=== PATIENT | male | born 1980 | race Caucasian/White ===

== ENCOUNTER 2018-08-28 17:31 | Inpatient (IN) ==
[2018-08-28 18:11] LABS: ABG PCO2 54 mmHg (38-42); ABG PO2 73 mmHg (61-120)
[2018-08-28] MEDS ORDERED: Sod Chloride 0.9% Inj 1,000 ML IV.SIG ONE ×2 (18:16)
--- NOTE | 2018-08-28 18:17 | ED ---
HPI General Chief Complaint: Respiratory Symptoms Stated Complaint: poss OD/evac Time Seen by Provider: 08/28/18 17:44 Source: patient, RN notes reviewed and old records reviewed Mode of arrival: EMS Limitations: other (illness) History of Present Illness 38-year-old male presents to the emergency department via EMS for evaluation after possible syncope versus cardiac arrest. Patient has been short of breath for approximately 2 weeks he states. He states he has been coughing and wheezing. He reports a fever a week ago, no current fever. His states that she was talking to him and he became unresponsive. She states he had no pulse and did CPR. According to EMS, they gave him Narcan and he woke up to a GCS of 15. The patient adamantly denies using IV drugs. His also denies him using IV drugs. The patient reports no chronic medical problems and takes no prescribed medications. He denies any chest pain. He does report shortness of breath. He denies any abdominal pain. Patient does use tobacco. He adamantly denies drug use. Oxygen saturation on room air was 65% upon arriving in the room. Severity: Severe MD Complaint: Reports shortness of breath Onset (ago): week(s) (2) Severity: severe Consistency/Duration: progressively worsening Relieving factors: nothing Exacerbating factors: nothing Known history of: Denies COPD, asthma, congestive heart failure, diabetes and recurrent pneumonia Associated symptoms: Reports fever, cough, wheezing, sputum production, hemoptysis, nausea/vomiting, syncope and chest congestion; Denies chest pain and abdominal pain Treatment prior to arrival: Reports other (Narcan) Related Data Home oxygen amount: none Home Medications Medication Instructions Recorded Confirmed No Known Home Medications 08/28/18 08/28/18 Allergies Allergy/AdvReac Type Severity Reaction Status Date / Time No Known Allergies Allergy Verified 08/28/18 18:22 Review of Systems ROS: all other systems reviewed are negative [facility] Medical History Medical History No active medical problems (Acute) Surgical History Surgical History No history of previous surgery (Acute) Social History Social History Substance History: No History of Abuse Second Hand Smoke Exposure: Yes Smoking Status: Former smoker Tobacco Type: Cigarettes How Often Do You Have a Drink Containing Alcohol: Monthly or less Recent Travel in [facility] within the Last 8 Weeks: No Recent Out of Country Travel within the Last 8 Weeks: No Immunization History Tetanus Immunization: >5 Years Exam Narrative Exam Narrative: GENERAL: Well-nourished, well-developed male patient, afebrile SKIN: Focused skin assessment warm/dry. HEAD: Normocephalic. Atraumatic EYES: No scleral icterus. No injection or drainage. NECK: Supple, trachea midline. No JVD or lymphadenopathy. CARDIOVASCULAR: Regular rate and rhythm without murmurs, gallops, or rubs. RESPIRATORY: Breath sounds equal bilaterally. No accessory muscle use. Lung sounds diminished throughout, slight wheezes upper lobes GASTROINTESTINAL: Abdomen soft, non-tender, nondistended. MUSCULOSKELETAL: No cyanosis, or edema. BACK: Nontender without obvious deformity. No CVA tenderness. Course Initial Documented Vital Signs Temperature 98.3 F 08/28/18 17:34 Pulse Rate 97 H 08/28/18 17:34 Respiratory Rate 20 08/28/18 17:34 Blood Pressure 157/81 H 08/28/18 17:34 Pulse Oximetry 78 L 08/28/18 17:34 Last Documented Vital Signs Temperature 98.5 F 08/29/18 08:00 Pulse Rate 82 08/29/18 08:00 Respiratory Rate 18 08/29/18 08:00 Blood Pressure 126/82 08/29/18 08:00 Pulse Oximetry 95 08/29/18 10:29 Medical Decision Making [facility] Narrative Medical decision making narrative: 38 year old male presents to the emergency department for possible OD. However, he adamantly denies using IV drugs. His oxygen saturation is 65% on room air. He is up to 91% on a nonrebreather. IV access is obtained. CBC, CMP, Lactic acid, magnesium, BNP, CK, Troponin, PTT, PT/INR, blood cultures x 2 are ordered and pending. Patient is given duoneb x3 , solumedrol 125 mg IV, NS 2 L IV bolus. Chest x-ray, CT pulmonary angiogram are ordered and pending. CBC shows no acute abnormality. CMP shows hyperglycemia of 161. Lactic acid is 2.4. Magnesium is 2.5. BNP is pending. CK is 131. Troponin is less than 0.02. PTT is 22.6. PT/INR is 10.1/1.0. Chest x-ray is negative. CT pulmonary angiogram shows Moderate interstitial changes with minimal consolidation left lobe with some air bronchograms. No evidence for central pulmonary emboli. Patient is weaned to a partial nonrebreather, oxygen saturation 98-100%. He states he is feeling much better. He is reluctant to be admitted, but agrees to admission. Patient is given Azithromycin 500 mg IV, Rocephin 1 gm IV for pneumonia, sepsis, hypoxia. Medical Screen Exam Complete: Yes Emergency Medical Condition: Yes Differential Diagnosis Differential Diagnosis: pneumonia vs. sepsis vs. PE vs. ACS Medical Records Medical records reviewed: Yes I reviewed the patient's medical records. Lab Data Result diagrams: 08/29/18 07:03 08/29/18 07:03 Lab Results 08/28/18 08/28/18 08/28/18 Range/Units 18:00 18:05 18:05 WBC 8.0 (4.0-11.0) th/mm3 RBC 4.23 L (4.50-5.90) mil/mm3 Hgb 13.6 (13.0-17.0) gm/dL Hct 39.2 (39.0-51.0) % MCV 92.8 (80.0-100.0) fL MCH 32.2 (27.0-34.0) pg MCHC 34.7 (32.0-36.0) % RDW 12.6 (11.6-17.2) % Plt Count 293 (150-450) th/mm3 MPV 7.8 (7.0-11.0) fL Neut % (Auto) 64.3 (16.0-70.0) % Lymph % (Auto) 28.0 (9.0-44.0) % [place] % (Auto) 5.2 (0.0-8.0) % Eos % (Auto) 1.8 (0.0-4.0) % Baso % (Auto) 0.7 (0.0-2.0) % Neut # (Auto) 5.2 (1.8-7.7) th/mm3 Lymph # (Auto) 2.2 (1.0-4.8) th/mm3 [place] # (Auto) 0.4 (0.0-0.9) th/mm3 Eos # (Auto) 0.1 (0.0-0.4) th/mm3 Baso # (Auto) 0.1 (0.0-0.2) th/mm3 WBC Differential . Differential Comment Auto diff final PT (9.8-11.6) sec INR Ratio APTT (23.4-31.7) sec Puncture Site Right radial Patient Temperature 98.6 O2 Saturation 92 (90-100) % ABG pH 7.34 L (7.380-7.420) ABG pCO2 54 H* (38-42) mmHg ABG pO2 73 (61-120) mmHg ABG HCO3 28 H (22-26) mmol/L ABG O2 Content 17.0 (12.0-20.0) Vol % ABG Base Excess 3.0 H (-2-2) mmol/L ABG Methemoglobin 0.9 (0-2) % Schuyler Test Present Hemoglobin 13.1 (12.0-16.0) G/DL Carboxyhemoglobin 0.7 (0-4) % O2 Delivery Device Nrb Liter Flow 15.00 L/M Critical Value Yes Sodium 142 (136-145) meq/L Potassium 3.6 (3.5-5.1) meq/L Chloride 106 (98-107) meq/L Carbon Dioxide 25.1 (21.0-32.0) meq/L Anion Gap 11 (5-15) meq/L BUN 16 (7-18) mg/dL Creatinine 1.26 (0.60-1.30) mg/dL Estimated GFR 64 L (>89) mL/min Random Glucose 161 H (74-106) mg/dL Lactic Acid (0.4-2.0) mmol/L Calcium 8.3 L (8.5-10.1) mg/dL Magnesium (1.5-2.5) mg/dL Total Bilirubin 0.5 (0.2-1.0) mg/dL AST 124 H (15-37) U/L ALT 162 H (12-78) U/L Alkaline Phosphatase 46 (45-117) U/L Total Creatine Kinase 131 (39-308) U/L CK-MB (CK-2) Less than 1.0 (0.5-3.6) ng/mL Troponin I Less than 0.02 L (0.02-0.05) ng/mL B-Natriuretic Peptide (0-100) pg/mL Total Protein 7.7 (6.4-8.2) g/dL Albumin 3.8 (3.4-5.0) g/dL Urine Opiates Screen (Neg) Ur Barbiturates Screen (Neg) Ur Amphetamines Screen (Neg) U Benzodiazepines Scrn (Neg) Urine Cocaine Screen (Neg) U Cannabinoids Screen (Neg) 08/28/18 08/28/18 08/28/18 Range/Units 18:05 18:05 18:05 WBC (4.0-11.0) th/mm3 RBC (4.50-5.90) mil/mm3 Hgb (13.0-17.0) gm/dL Hct (39.0-51.0) % MCV (80.0-100.0) fL MCH (27.0-34.0) pg MCHC (32.0-36.0) % RDW (11.6-17.2) % Plt Count (150-450) th/mm3 MPV (7.0-11.0) fL Neut % (Auto) (16.0-70.0) % Lymph % (Auto) (9.0-44.0) % [place] % (Auto) (0.0-8.0) % Eos % (Auto) (0.0-4.0) % Baso % (Auto) (0.0-2.0) % Neut # (Auto) (1.8-7.7) th/mm3 Lymph # (Auto) (1.0-4.8) th/mm3 [place] # (Auto) (0.0-0.9) th/mm3 Eos # (Auto) (0.0-0.4) th/mm3 Baso # (Auto) (0.0-0.2) th/mm3 WBC Differential Differential Comment PT 10.1 (9.8-11.6) sec INR 1.0 Ratio APTT 22.6 L (23.4-31.7) sec Puncture Site Patient Temperature O2 Saturation (90-100) % ABG pH (7.380-7.420) ABG pCO2 (38-42) mmHg ABG pO2 (61-120) mmHg ABG HCO3 (22-26) mmol/L ABG O2 Content (12.0-20.0) Vol % ABG Base Excess (-2-2) mmol/L ABG Methemoglobin (0-2) % Schuyler Test Hemoglobin (12.0-16.0) G/DL Carboxyhemoglobin (0-4) % O2 Delivery Device Liter Flow L/M Critical Value Sodium (136-145) meq/L Potassium (3.5-5.1) meq/L Chloride (98-107) meq/L Carbon Dioxide (21.0-32.0) meq/L Anion Gap (5-15) meq/L BUN (7-18) mg/dL Creatinine (0.60-1.30) mg/dL Estimated GFR (>89) mL/min Random Glucose (74-106) mg/dL Lactic Acid (0.4-2.0) mmol/L Calcium (8.5-10.1) mg/dL Magnesium 2.5 (1.5-2.5) mg/dL Total Bilirubin (0.2-1.0) mg/dL AST (15-37) U/L ALT (12-78) U/L Alkaline Phosphatase (45-117) U/L Total Creatine Kinase (39-308) U/L CK-MB (CK-2) (0.5-3.6) ng/mL Troponin I (0.02-0.05) ng/mL B-Natriuretic Peptide 20 (0-100) pg/mL Total Protein (6.4-8.2) g/dL Albumin (3.4-5.0) g/dL Urine Opiates Screen (Neg) Ur Barbiturates Screen (Neg) Ur Amphetamines Screen (Neg) U Benzodiazepines Scrn (Neg) Urine Cocaine Screen (Neg) U Cannabinoids Screen (Neg) 08/28/18 08/28/18 08/28/18 Range/Units 18:05 19:32 20:28 WBC (4.0-11.0) th/mm3 RBC (4.50-5.90) mil/mm3 Hgb (13.0-17.0) gm/dL Hct (39.0-51.0) % MCV (80.0-100.0) fL MCH (27.0-34.0) pg MCHC (32.0-36.0) % RDW (11.6-17.2) % Plt Count (150-450) th/mm3 MPV (7.0-11.0) fL Neut % (Auto) (16.0-70.0) % Lymph % (Auto) (9.0-44.0) % [place] % (Auto) (0.0-8.0) % Eos % (Auto) (0.0-4.0) % Baso % (Auto) (0.0-2.0) % Neut # (Auto) (1.8-7.7) th/mm3 Lymph # (Auto) (1.0-4.8) th/mm3 [place] # (Auto) (0.0-0.9) th/mm3 Eos # (Auto) (0.0-0.4) th/mm3 Baso # (Auto) (0.0-0.2) th/mm3 WBC Differential Differential Comment PT (9.8-11.6) sec INR Ratio APTT (23.4-31.7) sec Puncture Site Patient Temperature O2 Saturation (90-100) % ABG pH (7.380-7.420) ABG pCO2 (38-42) mmHg ABG pO2 (61-120) mmHg ABG HCO3 (22-26) mmol/L ABG O2 Content (12.0-20.0) Vol % ABG Base Excess (-2-2) mmol/L ABG Methemoglobin (0-2) % Schuyler Test Hemoglobin (12.0-16.0) G/DL Carboxyhemoglobin (0-4) % O2 Delivery Device Liter Flow L/M Critical Value Sodium (136-145) meq/L Potassium (3.5-5.1) meq/L Chloride (98-107) meq/L Carbon Dioxide (21.0-32.0) meq/L Anion Gap (5-15) meq/L BUN (7-18) mg/dL Creatinine (0.60-1.30) mg/dL Estimated GFR (>89) mL/min Random Glucose (74-106) mg/dL Lactic Acid 2.4 H 2.5 H (0.4-2.0) mmol/L Calcium (8.5-10.1) mg/dL Magnesium (1.5-2.5) mg/dL Total Bilirubin (0.2-1.0) mg/dL AST (15-37) U/L ALT (12-78) U/L Alkaline Phosphatase (45-117) U/L Total Creatine Kinase (39-308) U/L CK-MB (CK-2) (0.5-3.6) ng/mL Troponin I (0.02-0.05) ng/mL B-Natriuretic Peptide (0-100) pg/mL Total Protein (6.4-8.2) g/dL Albumin (3.4-5.0) g/dL Urine Opiates Screen Neg (Neg) Ur Barbiturates Screen Neg (Neg) Ur Amphetamines Screen Neg (Neg) U Benzodiazepines Scrn Neg (Neg) Urine Cocaine Screen Neg (Neg) U Cannabinoids Screen Neg (Neg) 08/29/18 08/29/18 08/29/18 Range/Units 01:54 01:54 07:03 WBC 11.8 H (4.0-11.0) th/mm3 RBC 3.88 L (4.50-5.90) mil/mm3 Hgb 12.8 L (13.0-17.0) gm/dL Hct 36.0 L (39.0-51.0) % MCV 92.6 (80.0-100.0) fL MCH 32.8 (27.0-34.0) pg MCHC 35.5 (32.0-36.0) % RDW 12.6 (11.6-17.2) % Plt Count 270 (150-450) th/mm3 MPV 7.7 (7.0-11.0) fL Neut % (Auto) 92.4 H (16.0-70.0) % Lymph % (Auto) 4.3 L (9.0-44.0) % [place] % (Auto) 3.2 (0.0-8.0) % Eos % (Auto) 0.0 (0.0-4.0) % Baso % (Auto) 0.1 (0.0-2.0) % Neut # (Auto) 10.9 H (1.8-7.7) th/mm3 Lymph # (Auto) 0.5 L (1.0-4.8) th/mm3 [place] # (Auto) 0.4 (0.0-0.9) th/mm3 Eos # (Auto) 0.0 (0.0-0.4) th/mm3 Baso # (Auto) 0.0 (0.0-0.2) th/mm3 WBC Differential . Differential Comment Auto diff final PT (9.8-11.6) sec INR Ratio APTT (23.4-31.7) sec Puncture Site Patient Temperature O2 Saturation (90-100) % ABG pH (7.380-7.420) ABG pCO2 (38-42) mmHg ABG pO2 (61-120) mmHg ABG HCO3 (22-26) mmol/L ABG O2 Content (12.0-20.0) Vol % ABG Base Excess (-2-2) mmol/L ABG Methemoglobin (0-2) % Schuyler Test Hemoglobin (12.0-16.0) G/DL Carboxyhemoglobin (0-4) % O2 Delivery Device Liter Flow L/M Critical Value Sodium (136-145) meq/L Potassium (3.5-5.1) meq/L Chloride (98-107) meq/L Carbon Dioxide (21.0-32.0) meq/L Anion Gap (5-15) meq/L BUN (7-18) mg/dL Creatinine (0.60-1.30) mg/dL Estimated GFR (>89) mL/min Random Glucose (74-106) mg/dL Lactic Acid 2.5 H (0.4-2.0) mmol/L Calcium (8.5-10.1) mg/dL Magnesium (1.5-2.5) mg/dL Total Bilirubin (0.2-1.0) mg/dL AST (15-37) U/L ALT (12-78) U/L Alkaline Phosphatase (45-117) U/L Total Creatine Kinase (39-308) U/L CK-MB (CK-2) (0.5-3.6) ng/mL Troponin I 0.04 (0.02-0.05) ng/mL B-Natriuretic Peptide (0-100) pg/mL Total Protein (6.4-8.2) g/dL Albumin (3.4-5.0) g/dL Urine Opiates Screen (Neg) Ur Barbiturates Screen (Neg) Ur Amphetamines Screen (Neg) U Benzodiazepines Scrn (Neg) Urine Cocaine Screen (Neg) U Cannabinoids Screen (Neg) 08/29/18 Range/Units 07:03 WBC (4.0-11.0) th/mm3 RBC (4.50-5.90) mil/mm3 Hgb (13.0-17.0) gm/dL Hct (39.0-51.0) % MCV (80.0-100.0) fL MCH (27.0-34.0) pg MCHC (32.0-36.0) % RDW (11.6-17.2) % Plt Count (150-450) th/mm3 MPV (7.0-11.0) fL Neut % (Auto) (16.0-70.0) % Lymph % (Auto) (9.0-44.0) % [place] % (Auto) (0.0-8.0) % Eos % (Auto) (0.0-4.0) % Baso % (Auto) (0.0-2.0) % Neut # (Auto) (1.8-7.7) th/mm3 Lymph # (Auto) (1.0-4.8) th/mm3 [place] # (Auto) (0.0-0.9) th/mm3 Eos # (Auto) (0.0-0.4) th/mm3 Baso # (Auto) (0.0-0.2) th/mm3 WBC Differential Differential Comment PT (9.8-11.6) sec INR Ratio APTT (23.4-31.7) sec Puncture Site Patient Temperature O2 Saturation (90-100) % ABG pH (7.380-7.420) ABG pCO2 (38-42) mmHg ABG pO2 (61-120) mmHg ABG HCO3 (22-26) mmol/L ABG O2 Content (12.0-20.0) Vol % ABG Base Excess (-2-2) mmol/L ABG Methemoglobin (0-2) % Schuyler Test Hemoglobin (12.0-16.0) G/DL Carboxyhemoglobin (0-4) % O2 Delivery Device Liter Flow L/M Critical Value Sodium 142 (136-145) meq/L Potassium 4.0 (3.5-5.1) meq/L Chloride 107 (98-107) meq/L Carbon Dioxide 26.8 (21.0-32.0) meq/L Anion Gap 8 (5-15) meq/L BUN 14 (7-18) mg/dL Creatinine 0.98 (0.60-1.30) mg/dL Estimated GFR 86 L (>89) mL/min Random Glucose 140 H (74-106) mg/dL Lactic Acid (0.4-2.0) mmol/L Calcium 8.2 L (8.5-10.1) mg/dL Magnesium (1.5-2.5) mg/dL Total Bilirubin 0.4 (0.2-1.0) mg/dL AST 37 (15-37) U/L ALT 119 H (12-78) U/L Alkaline Phosphatase 39 L (45-117) U/L Total Creatine Kinase (39-308) U/L CK-MB (CK-2) (0.5-3.6) ng/mL Troponin I Less than 0.02 L (0.02-0.05) ng/mL B-Natriuretic Peptide (0-100) pg/mL Total Protein 6.9 D (6.4-8.2) g/dL Albumin 3.5 (3.4-5.0) g/dL Urine Opiates Screen (Neg) Ur Barbiturates Screen (Neg) Ur Amphetamines Screen (Neg) U Benzodiazepines Scrn (Neg) Urine Cocaine Screen (Neg) U Cannabinoids Screen (Neg) Imaging Data Radiologist's impression: Chest X-Ray 08/28/18 17:55 CONCLUSION: Negative for acute process Chest CTA 08/28/18 17:56 CONCLUSION: 1. Moderate interstitial changes with minimal consolidation left lobe with some air bronchograms 2. No evidence for central pulmonary emboli ECG Data EKG Prior to Arrival: No Attestation: I personally reviewed and interpreted this ECG as follows: (EKG shows a sinus rhythm with a rate of 70. He does have right bundle branch block compatible with some chronic lung disease.) Discharge Plan Discharge Disposition Patient Disposition: ED Admit(ED Internal Use Only) Discharge Order Discharge Orders: ED Use Only Admit Order (Routine); Ordered 08/28/18 Ordered By: Ammy Carlisle Discharge Details Diagnosis: Pneumonia, Sepsis Physicians Team ED Provider: Flor Moura ED Midlevel Provider: Ammy Carlisle Primary Care Provider: Primary Care Masha Mccoy Attending Provider: Zandra Hough Status ED Status: Left Department Discharge Information Discharge Date/Time: 08/28/18:55
[2018-08-28] MEDS ORDERED: MethylPREDNISolone Sod Succinate Inj 125 MG/2 ML Vial IV.PUSH ONE (18:23)
[2018-08-28 18:36] LABS: Baso # (Auto) 0.1 th/mm3 (0.0-0.2); Baso % (Auto) 0.7 % (0.0-2.0); Eos # (Auto) 0.1 th/mm3 (0.0-0.4); Eos % (Auto) 1.8 % (0.0-4.0); Hematocrit 39.2 % (39.0-51.0); Hemoglobin 13.6 gm/dL (13.0-17.0); Lymph # (Auto) 2.2 th/mm3 (1.0-4.8); Mean Corpuscular HGB Conc 34.7 % (32.0-36.0); Mean Corpuscular Hemoglobin 32.2 pg (27.0-34.0); Mean Corpuscular Volume 92.8 fL (80.0-100.0); Mean Platelet Volume 7.8 fL (7.0-11.0); Mono # (Auto) 0.4 th/mm3 (0.0-0.9); Mono % (Auto) 5.2 % (0.0-8.0); Neut # (Auto) 5.2 th/mm3 (1.8-7.7); Neut % (Auto) 64.3 % (16.0-70.0); Platelet Count 293 th/mm3 (150-450); Red Blood Count 4.23 mil/mm3 (4.50-5.90); Red Cell Distribution Width 12.6 % (11.6-17.2)
--- NOTE | 2018-08-28 18:45 | XR ---
EXAM DATE: 08/28/2018 6:26 PM EST AGE/SEX: 38 years / Male INDICATIONS: Short of breath. CLINICAL DATA: This is the patient's initial encounter. Patient reports that signs and symptoms have been present for 4 - 6 days and indicates a pain score of 0/10. MEDICAL/SURGICAL HISTORY: None. None. COMPARISON: No prior exams available for comparison. FINDINGS: A single AP view of the chest demonstrates the lungs to be symmetrically aerated without evidence of mass, infiltrate or effusion. The cardiomediastinal contours are unremarkable. Osseous structures a re intact. CONCLUSION: Negative for acute process Electronically signed by: Jeremias Enciso MD Board Certified Radiologist 08/28/2018 6:44 PM EST
[2018-08-28 18:49] LABS: Activated Partial Thrombo Time 22.6 sec (23.4-31.7); Prothrombin Time 10.1 sec (9.8-11.6)
[2018-08-28 19:10] LABS: Anion Gap 11 meq/L (5-15)
[2018-08-28 19:25] LABS: Alanine Aminotransferase 162 U/L (12-78); Albumin 3.8 g/dL (3.4-5.0); Alkaline Phosphatase 46 U/L (45-117); Aspartate Aminotransferase 124 U/L (15-37); Blood Urea Nitrogen 16 mg/dL (7-18); Calcium 8.3 mg/dL (8.5-10.1); Carbon Dioxide 25.1 meq/L (21.0-32.0); Chloride 106 meq/L (98-107); Creatine Kinase 131 U/L (39-308); Glomerular Filtration Rate 64 mL/min (>89); Glucose,Random 161 mg/dL (74-106); Potassium 3.6 meq/L (3.5-5.1); Sodium 142 meq/L (136-145); Total Protein 7.7 g/dL (6.4-8.2)
[2018-08-28 20:09] LABS: Amphetamine Screen,Urine Neg (Neg); Barbiturate Screen,Urine Neg (Neg); Cannabinoid Screen,Urine Neg (Neg); Cocaine Screen,Urine Neg (Neg)
--- NOTE | 2018-08-28 20:09 | CT ---
EXAM DATE: 08/28/2018 7:58 PM EST AGE/SEX: 38 years / Male INDICATIONS: Evaluate for embolism. Short of breath. Cough. CLINICAL DATA: This is the patient's initial encounter. Patient reports that signs and symptoms have been present for 1 day and indicates a pain score of 2/10. MEDICAL/SURGICAL HISTORY: None. None. RADIATION DOSE: 17.20 CTDI (mGy) COMPARISON: C, CHEST 1V SINGLE AP, 08/28/2018. . TECHNIQUE: Volumetric scanning was performed using a multi-row detector CT scanner during bolus infu moose of 74 ml Omnipaque 350 (iohexol) nonionic water-soluble contrast as a single exam dose. The ivan a was post processed with a variety of visualization algorithms including full volume maximum intensi ty projection and sliding thin slab reformation. Using automated exposure control and adjustment of t he mA and/or kV according to patient size, radiation dose was kept as low as reasonably achievable to obtain optimal diagnostic quality images. DICOM format image data is available electronically for r eview and comparison. FINDINGS: Pulmonary Arteries: Moderate interstitial changes with minimal consolidation in the left lower lobe, retrocardiac region behind heart. No central pulmonary emboli No pericardial effusion No axillary or mediastinal adenopathy No significant coronary calcifications Small hiatal hernia with moderate reflux Upper abdominal contents are grossly unremarkable. CONCLUSION: 1. Moderate interstitial changes with minimal consolidation left lobe with some air bronchograms 2. No evidence for central pulmonary emboli Electronically signed by: Jeremias Enciso MD Board Certified Radiologist 08/28/2018 8:08 PM EST
[2018-08-28] MEDS ORDERED: Azithromycin Inj 500 MG in Sodium Chlor 0.9% Inj 250 ML IV.SIG ONE (20:12)
[2018-08-28 20:15] LABS: Opiate Screen,Urine Neg (Neg)
[2018-08-28] MEDS ORDERED: Acetaminophen 325 MG Tablet PO PRN (20:35)
[2018-08-28] MEDS ORDERED: Bisacodyl 10 MG Supp RECTAL PRN (20:35)
--- NOTE | 2018-08-28 20:38 | P.HPIM ---
History of Present Illness Primary Care Physician: No Primary Care Physician History of Present Illness: This is a 38-year-old male with no reported PMH was brought to the ER by EMS after syncope vs cardiac arrest. Pt states he's been "feeling sick" for the last 1wk, w/ non-productive cough, SOB and fever. Notes "haven't been eating or drinking anything", although reports pt still drinking Red Bull. Tonight, pt was having dinner at home with when he suddenly "passed out". lowered him to the floor and stated he had no pulse at which time she started CPR. Upon EMS arrival, pt did not require CPR but was unresponsive, given Narcan w/ immediate improvement back to baseline. Pt and deny h/o IVDU or drug abuse. On arrival to ER, pt w/ hypoxia, O2 sat 65% on RA, now 91% on Venturi. BP 139/99, HR 99, Afebrile. ABG w/ pH 7.34 , PCO2 54, PO2 73, bicarb 28, on 15 L. CBC essentially unremarkable. INR 1.0. Chemistry essentially unremarkable. Lactic Acid 2.4. Troponin negative. Drug Screen negative. CTA Chest negative for PE, consolidation left lobe with air bronchograms. CXR negative. S/p Rocephin/Zithro in ER. Pt initially hesitant to be admitted, however now agreeable. at bedside. Diagnosis (1) Syncope: (2) PNA (pneumonia): (3) Hypoxia: Review of Systems PAST FAMILY HISTORY: Reviewed. No h/o DM or CAD Review of Systems: all other systems reviewed are negative [facility] Medical History Medical History No active medical problems (Acute) Surgical History Surgical History No history of previous surgery (Acute) Social History Social History Substance History: No History of Abuse Second Hand Smoke Exposure: Yes Smoking Status: Former smoker Tobacco Type: Cigarettes How Often Do You Have a Drink Containing Alcohol: Monthly or less Recent Travel in [facility] within the Last 8 Weeks: No Recent Out of Country Travel within the Last 8 Weeks: No Immunization History Tetanus Immunization: >5 Years Medications and Allergies Allergies Allergy/AdvReac Type Severity Reaction Status Date / Time No Known Allergies Allergy Verified 08/28/18 18:22 Home Medications Medication Instructions Recorded Confirmed Type No Known Home Medications 08/28/18 08/28/18 History Active Medications: Active Medications Azithromycin 500 mg/ Sodium (Chloride) 250 mls @ 250 mls/hr IV.SIG ONCE ONE Stop: 08/28/18 21:11 Ceftriaxone Sodium 1,000 mg/ (Sodium Chloride) 100 mls @ 200 mls/hr IV.SIG ONCE ONE Stop: 08/28/18 20:41 Last Admin: 08/28/18 20:20 Dose: 200 mls/hr Physical Exam Vital signs: Vital Signs 08/28/18 17:34 08/28/18 18:00 08/28/18 18:15 Temperature 98.3 F Pulse Rate 97 H 75 Respiratory Rate 20 Blood Pressure 157/81 H Pulse Oximetry 78 L 93 L 91 L 08/28/18 18:16 08/28/18 19:21 08/28/18 19:22 Temperature Pulse Rate 79 98 H Respiratory Rate 14 20 Blood Pressure 167/96 H Pulse Oximetry 98 100 Intake & Output 08/28/18 08/28/18 08/29/18 06:59 18:59 06:59 Intake Total 1999 Balance 1999 Weight 79.379 kg Intake: IV 1999 NS Inj 1,000 ML @ Wide Open IV. 1999 SIG BOLUS ONE Rx#:[id number] Narrative: PE: GENERAL: Young white male in no acute distress. at bedside. SKIN: Focused skin assessment warm and dry. HEENT: PERRLA, EOMI. No scleral icterus or conjunctival pallor. No lid lag or facial droop. CARDIOVASCULAR: Regular rate and rhythm. No obvious murmurs to auscultation. No chest tenderness to palpation. RESPIRATORY: No obvious rhonchi, occasional wheezing. Clear to auscultation. Breath sounds equal bilaterally. GASTROINTESTINAL: Abdomen soft, non-tender, nondistended. BS normal. MUSCULOSKELETAL: Extremities without clubbing, cyanosis, or edema. No obvious deformities. NEUROLOGICAL: Awake, alert and oriented x4. No focal neurologic deficits. Moving both upper and lower extremities spontaneously. PSYCHIATRIC: Appropriate mood and affect. Insight and judgment normal. Results Labs CBC & Chem 7: 08/28/18 18:05 08/28/18 18:05 Imaging Impressions Chest X-Ray 08/28/18 17:55 CONCLUSION: Negative for acute process Chest CTA 08/28/18 17:56 CONCLUSION: 1. Moderate interstitial changes with minimal consolidation left lobe with some air bronchograms 2. No evidence for central pulmonary emboli Caprini VTE Risk Assessment Caprini VTE Risk Assessment: No/Low Risk (score <= 1) Caprini Risk Assessment Model: Point Value = 1 Point Value = 2 Point Value = 3 Point Value = 5 Age 41-60 Minor surgery BMI > 25 kg/m2 Swollen legs Varicose veins or History of unexplained or recurrent spontaneous Oral contraceptives or hormone replacement Sepsis (< 1 month) Serious lung disease, including pneumonia (< 1 month) Abnormal pulmonary function Acute myocardial infarction Congestive heart failure (< 1 month) History of inflammatory bowel disease Medical patient at bed rest Age 61-74 Arthroscopic surgery Major open surgery (> 45 min) Laparoscopic surgery (> 45 min) Malignancy Confined to bed (> 72 hours) Immobilizing plaster cast Central venous access Age >= 75 History of VTE Family history of VTE Factor V Leiden Prothrombin [id number] Lupus anticoagulant Anticardiolipin antibodies Elevated serum homocysteine Heparin-induced thrombocytopenia Other congenital or acquired thrombophilia Stroke (< 1 month) Elective arthroplasty Hip, pelvis, or leg fracture Acute spinal cord injury (< 1 month) Prophylaxis Regimen: Total Risk Factor Score Risk Level Prophylaxis Regimen 0-1 Low Early ambulation 2 Moderate Order ONE of the following: *Sequential Compression Device (SCD) *Heparin 5000 units SQ BID 3-4 Higher Order ONE of the following medications: *Heparin 5000 units SQ TID *Enoxaparin/Lovenox 40 mg SQ daily (WT < 150 kg, CrCl > 30 mL/min) *Enoxaparin/Lovenox 30 mg SQ daily (WT < 150 kg, CrCl > 10-29 mL/min) *Enoxaparin/Lovenox 30 mg SQ BID (WT < 150 kg, CrCl > 30 mL/min) AND/OR *Sequential Compression Device (SCD) 5 or more Highest Order ONE of the following medications: *Heparin 5000 units SQ TID (Preferred with Epidurals) *Enoxaparin/Lovenox 40 mg SQ daily (WT < 150 kg, CrCl > 30 mL/min) *Enoxaparin/Lovenox 30 mg SQ daily (WT < 150 kg, CrCl > 10-29 mL/min) *Enoxaparin/Lovenox 30 mg SQ BID (WT < 150 kg, CrCl > 30 mL/min) AND *Sequential Compression Device (SCD) Assessment and Plan (1) Syncope: Code(s): R55 - Syncope and collapse Status: Acute (2) PNA (pneumonia): Code(s): J18.9 - Pneumonia, unspecified organism Status: Acute (3) Hypoxia: Code(s): R09.02 - Hypoxemia Status: Acute Plan A/P: 1. Syncope: vs Cardiac Arrest, notes she performed CPR after pt "passed out", however upon EMS arrival no further CPR initiated. S/p Narcan w/ immediate return to baseline, although denies drug abuse. UDS negative. Telemetry, check Echo to eval for valvular abnormality/cardiomyopathy. 2. Hypoxia: O2 sat 65% on RA upon arrival, currently 91% on 6L Venturi, CTA Pulm negative for PE, +PNA, monitor O2 closely, continue w/ IV Abx and bronchodilators. Consult Pulmonary if needed 3. PNA: CTA Chest w/ infiltrate and air bronchograms, continue Rocephin/Zithro , Solu-Medrol, Symbicort. 4. DVT Prophylaxis: SCD/Teds 5. Social work for d/c planning as needed. 6. Case discussed w/ ER physician at length, labs/records/imaging reviewed by me 7. Code Status Discussed w/ pt and , pt is FULL CODE, explained to pt and that if his respiratory status declines or he becomes dangerously hypoxic, pt may need to be transferred to ICU for intubation, pt and agreeable.
[2018-08-28] MEDS: Sod Chloride 0.9% Inj 1,000 ML IV.CONT SCH (21:21)
[2018-08-28] MEDS: Senna/Docusate Sodium 8.6/50 MG Tablet PO SCH (22:09)
[2018-08-28] MEDS: Budesonide-Formoterol 160/4.5 MCG 6 GM Inhaler INH SCH (22:33)
[2018-08-28] MEDS: MethylPREDNISolone Sod Succinate Inj 40 MG/ML Vial IV.PUSH SCH (23:49)
[2018-08-29] MEDS: MethylPREDNISolone Sod Succinate Inj 40 MG/ML Vial IV.PUSH SCH ×4 (04:17→23:53)
--- NOTE | 2018-08-29 06:57 | ECG ---
Date Performed: 08/28/2018 Time Performed: 18:19:31 PTAGE: 38 years EKG: Sinus rhythm POSSIBLE LEFT ATRIAL ENLARGEMENT POSSIBLE RIGHT VENTRICULAR CONDUCTION DELAY NONSPECIFIC T-WAVE ABNO RMALITY BORDERLINE ECG NO PREVIOUS TRACING DOCTOR: Mendel Victoria Interpretating Date/Time 08/29/2018 06:55:05
[2018-08-29 07:52] LABS: Baso % (Auto) 0.1 % (0.0-2.0); Hemoglobin 12.8 gm/dL (13.0-17.0); Lymph # (Auto) 0.5 th/mm3 (1.0-4.8); Lymph % (Auto) 4.3 % (9.0-44.0); Mean Corpuscular HGB Conc 35.5 % (32.0-36.0); Mean Corpuscular Hemoglobin 32.8 pg (27.0-34.0); Mean Corpuscular Volume 92.6 fL (80.0-100.0); Mean Platelet Volume 7.7 fL (7.0-11.0); Mono # (Auto) 0.4 th/mm3 (0.0-0.9); Mono % (Auto) 3.2 % (0.0-8.0); Neut # (Auto) 10.9 th/mm3 (1.8-7.7); Neut % (Auto) 92.4 % (16.0-70.0); Platelet Count 270 th/mm3 (150-450); Red Blood Count 3.88 mil/mm3 (4.50-5.90); Red Cell Distribution Width 12.6 % (11.6-17.2); White Blood Count 11.8 th/mm3 (4.0-11.0)
[2018-08-29 08:20] LABS: Albumin 3.5 g/dL (3.4-5.0); Anion Gap 8 meq/L (5-15); Aspartate Aminotransferase 37 U/L (15-37); Blood Urea Nitrogen 14 mg/dL (7-18); Calcium 8.2 mg/dL (8.5-10.1); Carbon Dioxide 26.8 meq/L (21.0-32.0); Chloride 107 meq/L (98-107); Glomerular Filtration Rate 86 mL/min (>89); Glucose,Random 140 mg/dL (74-106); Sodium 142 meq/L (136-145)
[2018-08-29 08:21] LABS: Alanine Aminotransferase 119 U/L (12-78)
[2018-08-29 08:24] LABS: Alkaline Phosphatase 39 U/L (45-117); Total Protein 6.9 g/dL (6.4-8.2)
[2018-08-29] MEDS: Budesonide-Formoterol 160/4.5 MCG 6 GM Inhaler INH SCH ×2 (10:16→21:18)
[2018-08-29] MEDS: Senna/Docusate Sodium 8.6/50 MG Tablet PO SCH ×2 (10:16→21:19)
[2018-08-29] MEDS: Sod Chloride 0.9% Inj 1,000 ML IV.CONT SCH (10:18)
--- NOTE | 2018-08-29 12:26 | P.PNIM ---
Subjective Interval history: Feels tired. No fever or chills overnight. With some shortness of breath however saturating well on 2 L by nasal cannula. Patient with positive blood cultures consult infectious disease as vancomycin. Physical Exam Vital signs: Vital Signs 08/28/18 17:34 08/28/18 18:00 08/28/18 18:15 Temperature 98.3 F Pulse Rate 97 H 75 Respiratory Rate 20 Blood Pressure 157/81 H Pulse Oximetry 78 L 93 L 91 L 08/28/18 18:16 08/28/18 19:21 08/28/18 19:22 Temperature Pulse Rate 79 98 H Respiratory Rate 14 20 Blood Pressure 167/96 H Pulse Oximetry 98 100 08/28/18 21:46 08/28/18 22:05 08/28/18 23:00 Temperature 98.6 F Pulse Rate 99 H 68 Respiratory Rate 20 Blood Pressure 139/99 H Pulse Oximetry 91 L 91 L 08/28/18 23:44 08/29/18 00:00 08/29/18 01:00 Temperature 98 F Pulse Rate 70 64 66 Respiratory Rate 18 Blood Pressure 131/68 Pulse Oximetry 97 08/29/18 02:00 08/29/18 03:00 08/29/18 04:00 Temperature Pulse Rate 66 64 62 Respiratory Rate Blood Pressure Pulse Oximetry 08/29/18 04:14 08/29/18 05:00 08/29/18 06:00 Temperature 98.2 F Pulse Rate 70 62 68 Respiratory Rate 18 Blood Pressure 122/71 Pulse Oximetry 98 08/29/18 08:00 08/29/18 10:29 Temperature 98.5 F Pulse Rate 82 Respiratory Rate 18 Blood Pressure 126/82 Pulse Oximetry 94 L 95 Intake & Output 08/28/18 08/29/18 08/29/18 18:59 06:59 18:59 Intake Total 2590 / 2590 1000 / 1000 Balance 2590 / 2590 1000 / 1000 Weight 79.379 kg 81.1 kg Intake: IV 2350 / 2350 1000 / 1000 NS Inj 1,000 ML @ 100 mls/hr IV 1000 / 1000 .CONT .Q10H GEOVANNA Rx#:[id number] Azithromycin Inj 500 MG In NS 250 / 250 Inj 250 ML @ 250 mls/hr IV.SIG ONCE ONE Rx#:[id number] NS Inj 1,000 ML @ Wide Open IV. 1999 SIG BOLUS ONE Rx#:[id number] Rocephin Inj 1,000 MG In NS Inj 100 / 100 100 ML @ 200 mls/hr IV.SIG ONCE ONE Rx#:[id number] Oral 240 / 240 Other: # Voids 1 Date of Last Bowel Movement 08/28/18 Narrative: GENERAL: Very pleasant 38-year-old male, pale, appears chronically ill, however in no acute distress. CARDIOVASCULAR: Regular rate and rhythm. No obvious murmurs to auscultation. No chest tenderness to palpation. RESPIRATORY: No obvious rhonchi, occasional wheezing. Clear to auscultation. Breath sounds equal bilaterally. GASTROINTESTINAL: Abdomen soft, non-tender, nondistended. BS normal. MUSCULOSKELETAL: Extremities without clubbing, cyanosis, or edema. No obvious deformities. NEUROLOGICAL: Awake, alert and oriented x4. No focal neurologic deficits. Moving both upper and lower extremities spontaneously. PSYCHIATRIC: Appropriate mood and affect. Insight and judgment normal. Results Labs CBC & Chem 7: 08/29/18 07:03 08/29/18 07:03 Labs: Microbiology 08/28/18 18:00 Blood - Peripheral Aerobic Blood Culture - Preliminary No growth in 1 day 08/28/18 18:00 Blood - Peripheral Anaerobic Blood Culture - Preliminary No growth in 1 day 08/28/18 18:05 Blood - Peripheral Aerobic Blood Culture - Preliminary No growth in 1 day 08/28/18 18:05 Blood - Peripheral Anaerobic Blood Culture - Preliminary No growth in 1 day Imaging Imaging: Impressions Chest X-Ray 08/28/18 17:55 CONCLUSION: Negative for acute process Chest CTA 08/28/18 17:56 CONCLUSION: 1. Moderate interstitial changes with minimal consolidation left lobe with some air bronchograms 2. No evidence for central pulmonary emboli Assessment and Plan (1) Syncope: Code(s): R55 - Syncope and collapse Status: Acute (2) PNA (pneumonia): Code(s): J18.9 - Pneumonia, unspecified organism Status: Acute (3) Hypoxia: Code(s): R09.02 - Hypoxemia Status: Acute Plan Syncope: vs Cardiac Arrest, notes she performed CPR after pt "passed out" , however upon EMS arrival no further CPR initiated. S/p Narcan w/ immediate return to baseline, although denies drug abuse. UDS negative. Telemetry, check Echo to eval for valvular abnormality/cardiomyopathy. Hypoxia: O2 sat 65% on RA upon arrival, currently 91% on 6L Venturi, CTA Pulm negative for PE, +PNA, monitor O2 closely, continue w/ IV Abx and bronchodilators. Consult Pulmonary if needed PNA: CTA Chest w/ infiltrate and air bronchograms, continue Rocephin/Zithro, Solu-Medrol, Symbicort. Bacteremia. Consult infectious disease. Add vancomycin. Repeat blood cultures. DVT Prophylaxis: SCD/Teds Case discussed w/ ER physician at length, labs/records/imaging reviewed by me Code Status Discussed w/ pt and , pt is FULL CODE, explained to pt and that if his respiratory status declines or he becomes dangerously hypoxic, pt may need to be transferred to ICU for intubation, pt and agreeable. Progress Note: Quality VTE Deep Vein Thrombosis/Pulmonary Embolism Present on Admission: No
--- NOTE | 2018-08-29 17:19 | ECHRPT ---
Indication: SYNCOPE CONCLUSIONS Normal left ventricular size. Wall thickness is normal. The left ventricular systolic function is normal with an estimated ejection fraction in the range of 60-65%. Trace mitral valve regurgitation. BP: / HR: Rhythm: MEASUREMENTS (Male / Female) Normal Values Technical Quality: 2D ECHO LV Diastolic Diameter PLAX 4.4 cm 4.2 - 5.9 / 3.9 - 5.3 cm LV Systolic Diameter PLAX 3.2 cm IVS Diastolic Thickness 0.9 cm 0.6 - 1.0 / 0.6 - 0.9 cm LVPW Diastolic Thickness 0.9 cm 0.6 - 1.0 / 0.6 - 0.9 cm LV Relative Wall Thickness 0.4 RV Internal Dim ED PLAX 2.1 cm LA Systolic Diameter LX 3.6 cm 3.0 - 4.0 / 2.7 - 3.8 cm DOPPLER Mitral E Point Velocity 81.9 cm/s Mitral A Point Velocity 63.2 cm/s Mitral E to A Ratio 1.3 TR Peak Velocity 194.0 cm/s TR Peak Gradient 15.1 mmHg Right Atrial Pressure 10.0 mmHg Pulmonary Artery Systolic Pressu 25.1 mmHg Right Ventricular Systolic Press 25.1 mmHg FINDINGS LEFT VENTRICLE Normal left ventricular size. Wall thickness is normal. The left ventricular systolic function is normal with an estimated ejection fraction in the range of 60-65%. RIGHT VENTRICLE Normal right ventricular size and systolic function. LEFT ATRIUM The left atrial size is normal. RIGHT ATRIUM The right atrial size is normal. ATRIAL SEPTUM Normal atrial septal thickness without atrial level shunting by limited color doppler interrogation. AORTA The aortic root and proximal ascending aorta are normal in size on limited imaging. MITRAL VALVE Trace mitral valve regurgitation. AORTIC VALVE Trileaflet aortic valve. No aortic valve stenosis or regurgitation. TRICUSPID VALVE Structurally normal tricuspid valve. No tricuspid valve stenosis or regurgitation. PULMONARY VALVE No pulmonary valve regurgitation or stenosis. VESSELS The inferior vena cava is normal in size. PERICARDIUM No pericardial effusion. Brenda Salinas MD, FACC (Electronically Signed) Final Date:29 August 2018 17:18
[2018-08-29] MEDS ORDERED: Vancomycin Consult Pharmacy OTHER PRN (17:52)
--- NOTE | 2018-08-29 18:23 | MG ---
cc: Jerry Goel MD EEG RECORD NUMBER: [id number] Syncope versus cardiac arrest, 38-year-old man, Solu-Medrol. Recording shows a symmetric 11-12 Hz, 50 microvolt posterior and diffuse rhythm. Recording overall is synchronous and symmetric. Hyperventilation is not performed. No hemisphere asymmetries are noted. No epileptiform or seizure activity is seen. Photic stimulation is performed with some symmetric posterior driving at most frequencies. IMPRESSION: A normal awake electroencephalogram. No evidence for a focal or diffuse abnormality. MD LIN Ramirez/luli , 06:08 PM , 06:12 PM
[2018-08-29] MEDS ORDERED: Vancomycin Inj 1,000 MG in Sodium Chlor 0.9% Inj 250 ML IV.SIG ONE (18:30)
[2018-08-29] MEDS: Azithromycin Inj 500 MG in Sodium Chlor 0.9% Inj 250 ML IV.SIG SCH (22:13)
[2018-08-30] MEDS: Sod Chloride 0.9% Inj 1,000 ML IV.CONT SCH ×3 (00:37→12:17)
[2018-08-30] MEDS ORDERED: Vancomycin Inj 1,500 MG in Sodium Chlor 0.9% Inj 500 ML IV.SIG SCH (03:00)
[2018-08-30] MEDS: MethylPREDNISolone Sod Succinate Inj 40 MG/ML Vial IV.PUSH SCH ×4 (05:10→23:15)
[2018-08-30] MEDS: Senna/Docusate Sodium 8.6/50 MG Tablet PO SCH ×2 (08:54→21:33)
[2018-08-30] MEDS: Budesonide-Formoterol 160/4.5 MCG 6 GM Inhaler INH SCH ×2 (08:54→21:45)
--- NOTE | 2018-08-30 13:30 | MB ---
cc: Isaak Johnson MD DATE: 08/30/2018 REQUESTING PHYSICIAN: Zandra Hough MD. REASON FOR CONSULTATION: Bacteremia, neutropenic patient. HISTORY OF PRESENT ILLNESS: This is a 38-year-old white male who was admitted to the hospital on 08/28/2018. The patient was brought to the emergency department after he passed out. He had been experiencing shortness of breath and coughing and chills 2 weeks prior. He states that he had an episode of chills on 08/20/2018. After that, he did not get any further chills but he continued to have coughing and wheezing and felt like he had a cold, but it was not going away. The patient states that he works 2 jobs and he was going from job to job. Eventually, he started feeling exhausted. He was brought to the emergency department and on evaluation, his temperature was normal and his respiratory rate was normal. His white count was slightly elevated at 11.8. He noted that he was having chest pain at the anterior left side of the chest and he reports that he has improved. He states that his coughing has improved. He states that he is feeling a lot better. Part of the evaluation included blood cultures, which one bottle with gram-positive cocci out of 4. The patient has had no fever. His white blood cell count differential shows 92% neutrophils. A chest x-ray was negative for acute process. However, CT of the chest showed minimal consolidation in the left lobe with some bronchograms and moderate interstitial changes. The patient tells me at one point he was coughing up yellow sputum, but is no longer coughing up sputum. He used to smoke a pack of cigarettes a day for a couple of years and has not smoked in the past 2 weeks. He denies IV drug use. The patient is in no acute distress currently. He feels well. He underwent a 2-D echocardiogram. It showed normal ejection fraction. There was trace mitral regurgitation, but no mention of valve vegetation and no pericardial effusion. The patient has been afebrile since admission. PAST MEDICAL HISTORY: No previous medical problems. ALLERGIES: NO KNOWN DRUG ALLERGIES. MEDICATIONS: 1. Ceftriaxone. 2. Azithromycin. 3. Vancomycin. 4. Methylprednisolone. 5. Hyun-Colace. 6. Lactulose. 7. Symbicort. SOCIAL HISTORY: The patient is . Positive tobacco use, 1 pack a day. Positive alcohol use. Denies illicit drugs. FAMILY HISTORY: Noncontributory. REVIEW OF SYSTEMS: All systems have been reviewed and pertinent features are mentioned in the history of present illness. PHYSICAL EXAMINATION: GENERAL: This is a well-developed male who is in no acute distress. He is awake and alert. He is fully oriented. VITAL SIGNS: Temperature 98.7, BP 145/84, respirations 18, heart rate 80. HEENT: Head is atraumatic. Extraocular muscles grossly intact. Pupils reactive to light. No icterus. Oropharynx moist mucosa without lesions. NECK: Supple. No adenopathy. No swelling. LUNGS: Rhonchi at the bases, left greater than right. HEART: Regular S1 and S2 without any murmurs, rubs, or gallops. ABDOMEN: Bowel sounds present. Soft, no tenderness. RECTAL: Not performed. EXTREMITIES: No clubbing, cyanosis, or edema. SKIN: No rash. The patient has multiple tattoos over a large area of the body surface. NEUROLOGIC: No gross focal finding. PSYCHIATRIC: The patient is calm and cooperative. LABORATORY DATA: WBC 11.8, platelets 270, hemoglobin 12.8, neutrophils 92.4, creatinine 0.98, BUN 14, estimated GFR 86, AST 37, ALT 119. IMPRESSION: 1. Pneumonia in a patient with symptoms of cough, sputum production, left anterior chest pain, and prior episode of chills and malaise. Sputum culture not available and is currently not producing sputum. 2. Bacteremia: One blood culture positive out of 4 with gram-positive cocci. The microbiology lab reports that preliminary the gram-positive cocci looks like a coag-negative Staph. The patient without acute sepsis syndrome. This is very likely contamination. 3. Mildly elevated white blood cell count. I do not think the positive blood culture is true bacteremia and certainly it being a coagulase-negative Staph makes it unrelated to the pneumonia. If it were strep pneumonia, then certainly I would think it is associated with the pneumonia. We have no sputum culture for a definitive diagnosis of the bacteria causing this pneumonia. RECOMMENDATIONS: 1. Discontinue vancomycin. 2. Continue to treat for pneumonia with ceftriaxone and azithromycin and monitor the repeat blood cultures until finalized. 3. Possible transition to Levaquin or ciprofloxacin to continue the treatment as outpatient. Thank you for this consultation. I have nothing additional to add. Please call if further input is needed. Isaak Johnson MD FFD/ts , 12:10 PM , 12:23 PM
--- NOTE | 2018-08-30 17:06 | P.PNIM ---
Subjective Interval history: The patient is in bed, he appears tired however not in acute distress. No wheezing. No much cough today. No fever or chills. Physical Exam Vital signs: Vital Signs 08/29/18 18:00 08/29/18 19:00 08/29/18 20:00 Temperature Pulse Rate 68 90 78 Respiratory Rate Blood Pressure Pulse Oximetry 08/29/18 21:00 08/29/18 21:14 08/29/18 22:00 Temperature 98.8 F Pulse Rate 70 81 74 Respiratory Rate 18 Blood Pressure 128/67 Pulse Oximetry 96 08/29/18 23:00 08/29/18 23:50 08/30/18 00:00 Temperature 98.7 F Pulse Rate 87 67 68 Respiratory Rate 18 Blood Pressure 128/74 Pulse Oximetry 98 08/30/18 01:00 08/30/18 02:00 08/30/18 03:00 Temperature Pulse Rate 66 60 55 L Respiratory Rate Blood Pressure Pulse Oximetry 08/30/18 03:30 08/30/18 04:00 08/30/18 05:00 Temperature 98.3 F Pulse Rate 72 56 L 62 Respiratory Rate 18 Blood Pressure 110/65 Pulse Oximetry 95 08/30/18 06:00 08/30/18 07:00 08/30/18 08:00 Temperature 98.7 F Pulse Rate 64 68 74 Respiratory Rate 18 Blood Pressure 145/84 H Pulse Oximetry 97 08/30/18 09:00 08/30/18 09:38 08/30/18 12:00 Temperature 98.2 F Pulse Rate 90 80 83 Respiratory Rate 20 Blood Pressure 152/85 H Pulse Oximetry 98 08/30/18 12:25 08/30/18 12:55 08/30/18 16:00 Temperature 97.9 F Pulse Rate 65 80 Respiratory Rate 16 Blood Pressure 146/80 H Pulse Oximetry 95 98 08/30/18 17:00 Temperature Pulse Rate 69 Respiratory Rate Blood Pressure Pulse Oximetry Intake & Output 08/29/18 08/30/18 08/30/18 18:59 06:59 18:59 Intake Total 2680 / 2680 3355 / 3355 1000 / 1000 Output Total 1900 / 1900 900 / 900 Balance 780 / 780 2455 / 2455 1000 / 1000 Weight 82 kg Intake: IV 1000 / 1000 3115 / 3115 1000 / 1000 NS Inj 1,000 ML @ 100 mls/hr IV 1000 / 1000 2000 / 2000 1000 / 1000 .CONT .Q10H [facility] Rx#:[id number] Azithromycin Inj 500 MG In NS 250 / 250 Inj 250 ML @ 250 mls/hr IV.SIG Q24H [facility] Rx#:[id number] Vancomycin Inj 1,000 MG In NS 250 / 250 Inj 250 ML @ 250 mls/hr IV.SIG ONCE ONE Rx#:[id number] Vancomycin Inj 1,500 MG In NS 515 / 515 Inj 500 ML @ 250 mls/hr IV.SIG Q12H [facility] Rx#:[id number] Rocephin Inj 1,000 MG In NS Inj 100 / 100 100 ML @ 200 mls/hr IV.SIG Q24H [facility] Rx#:[id number] Oral 1680 / 1680 240 / 240 Output: Urine 1900 / 1900 900 / 900 Other: Date of Last Bowel Movement 08/28/18 08/29/18 Narrative: GENERAL: Very pleasant 38-year-old male, pale, appears chronically ill, however in not acute distress. CARDIOVASCULAR: Regular rate and rhythm. No obvious murmurs to auscultation. No chest tenderness to palpation. RESPIRATORY: No obvious rhonchi, occasional wheezing. Clear to auscultation. Breath sounds equal bilaterally. GASTROINTESTINAL: Abdomen soft, non-tender, nondistended. BS normal. MUSCULOSKELETAL: Extremities without clubbing, cyanosis, or edema. No obvious deformities. NEUROLOGICAL: Awake, alert and oriented x4. No focal neurologic deficits. Moving both upper and lower extremities spontaneously. PSYCHIATRIC: Appropriate mood and affect. Insight and judgment normal. Results Labs CBC & Chem 7: 08/29/18 07:03 08/29/18 07:03 Labs: Microbiology 08/29/18 18:50 Blood - Peripheral Aerobic Blood Culture - Preliminary No growth in 1 day 08/29/18 18:50 Blood - Peripheral Anaerobic Blood Culture - Preliminary No growth in 1 day 08/29/18 18:57 Blood - Peripheral Aerobic Blood Culture - Preliminary No growth in 1 day 08/29/18 18:57 Blood - Peripheral Anaerobic Blood Culture - Preliminary No growth in 1 day 08/28/18 18:00 Blood - Peripheral Aerobic Blood Culture - Preliminary No growth in 2 days 08/28/18 18:00 Blood - Peripheral Anaerobic Blood Culture - Preliminary gram positive cocci 08/28/18 18:05 Blood - Peripheral Aerobic Blood Culture - Preliminary No growth in 2 days 08/28/18 18:05 Blood - Peripheral Anaerobic Blood Culture - Preliminary No growth in 2 days Assessment and Plan (1) Syncope: Code(s): R55 - Syncope and collapse Status: Acute (2) PNA (pneumonia): Code(s): J18.9 - Pneumonia, unspecified organism Status: Acute (3) Hypoxia: Code(s): R09.02 - Hypoxemia Status: Acute Plan Syncope: vs Cardiac Arrest, notes she performed CPR after pt "passed out" , however upon EMS arrival no further CPR initiated. S/p Narcan w/ immediate return to baseline, although denies drug abuse. UDS negative. Telemetry, check Echo to eval for valvular abnormality/cardiomyopathy. Hypoxia: O2 sat 65% on RA upon arrival, currently 91% on 6L Venturi, CTA Pulm negative for PE, +PNA, monitor O2 closely, continue w/ IV Abx and bronchodilators. Consult Pulmonary if needed PNA: CTA Chest w/ infiltrate and air bronchograms, continue Rocephin/Zithro, Solu-Medrol, Symbicort. Bacteremia. Consult infectious disease. Added vancomycin. Repeat blood cultures negative to date. Vancomycin discontinued continue treatment for pneumonia with ceftriaxone and azithromycin. Per infectious disease follow blood cultures repeat until final. Possible transition to Levaquin or Cipro as outpatient. DVT Prophylaxis: SCD/Teds Code Status FULL CODE Discussed with the patient, at bedside, nurse, ED physician ID physician Dr. Johnson Progress Note: Quality VTE Deep Vein Thrombosis/Pulmonary Embolism Present on Admission: No
[2018-08-30] MEDS: Azithromycin Inj 500 MG in Sodium Chlor 0.9% Inj 250 ML IV.SIG SCH (21:46)
[2018-08-31] MEDS: Sod Chloride 0.9% Inj 1,000 ML IV.CONT SCH ×2 (01:23→10:33)
[2018-08-31] MEDS: MethylPREDNISolone Sod Succinate Inj 40 MG/ML Vial IV.PUSH SCH ×2 (06:16→11:39)
[2018-08-31 06:49] VITALS: O2SAT 97
[2018-08-31] MEDS: Budesonide-Formoterol 160/4.5 MCG 6 GM Inhaler INH SCH (10:34)
[2018-08-31] MEDS: Senna/Docusate Sodium 8.6/50 MG Tablet PO SCH (10:38)
[2018-08-31 12:46] VITALS: RESP 16
--- NOTE | 2018-08-31 13:21 | P.DS ---
DS: Providers Date of admission: 08/28/18 20:30 Primary care physician: No Primary Care Physician Consults: 08/29/18 17:52 Consult to Infectious Diseases Routine Consulting Provider: Isaak Johnson Reason for Consultation: bacteremia, neutropenic patient Notified:: Service Spoke with:: DINA Date Notified:: 08/29/18 Time Notified:: 17:58 Ordering Provider: BRIANA Brief History from admission: This is a 38-year-old male with no reported PMH was brought to the ER by EMS after syncope vs cardiac arrest. Pt states he's been "feeling sick" for the last 1wk, w/ non-productive cough, SOB and fever. Notes "haven't been eating or drinking anything", although reports pt still drinking Red Bull. Tonight, pt was having dinner at home with when he suddenly "passed out". lowered him to the floor and stated he had no pulse at which time she started CPR. Upon EMS arrival, pt did not require CPR but was unresponsive, given Narcan w/ immediate improvement back to baseline. Pt and deny h/o IVDU or drug abuse. On arrival to ER, pt w/ hypoxia, O2 sat 65% on RA, now 91% on Venturi. BP 139/99, HR 99, Afebrile. ABG w/ pH 7.34 , PCO2 54, PO2 73, bicarb 28, on 15 L. CBC essentially unremarkable. INR 1.0. Chemistry essentially unremarkable. Lactic Acid 2.4. Troponin negative. Drug Screen negative. CTA Chest negative for PE, consolidation left lobe with air bronchograms. CXR negative. S/p Rocephin/Zithro in ER. Pt initially hesitant to be admitted, however now agreeable. at bedside. DS: Diagnosis Discharge Diagnosis (1) Syncope: Status: Acute (2) PNA (pneumonia): Status: Acute (3) Hypoxia: Status: Acute DS: Summary Shunt is a pleasant 38-year-old male who came with syncope: vs Cardiac Arrest, notes she performed CPR after pt "passed out", however upon EMS arrival no further CPR initiated. S/p Narcan w/ immediate return to baseline, although denies drug abuse. UDS negative. Telemetry, check Echo to eval for valvular abnormality/cardiomyopathy. Also was noted with hypoxia: O2 sat 65% on RA upon arrival, was on 6L Venturi , CTA Pulm negative for PE, +PNA, monitor O2 closely, continue w/ IV Abx and bronchodilators. PNA: CTA Chest w/ infiltrate and air bronchograms, continue Rocephin/Zithro, Solu-Medrol, Symbicort. Tapered down. Patient improved significantly and he is saturating well on room air. Bacteremia. Consult infectious disease. Added vancomycin. Repeat blood cultures negative to date. Vancomycin discontinued continue treatment for pneumonia with ceftriaxone and azithromycin. Per infectious disease follow blood cultures repeat until final. Discussed with Dr. Johnson infectious disease specialist recommends azithromycin for 5 more days at discharge. Patient improved, he was discharged home in stable condition to follow-up with PCP and consultants as outpatient Time Spent with Patient Total time spent providing and/or coordinating discharge services: > 30 min Quality: VTE Deep Vein Thrombosis/Pulmonary Embolism Present on Admission: No Exam Narrative Exam Narrative: GENERAL: A pleasant 38-year-old male, well-nourished well- developed appears in not acute distress. CARDIOVASCULAR: Regular rate and rhythm. RESPIRATORY: No accessory muscle use. Clear to auscultation. Breath sounds equal bilaterally. GASTROINTESTINAL: Abdomen soft, non-tender, nondistended. Hepatic and splenic margins not palpable. MUSCULOSKELETAL: Extremities without clubbing, cyanosis, or edema. No obvious deformities. NEUROLOGICAL: Awake and alert. No obvious cranial nerve deficits. Motor grossly within normal limits. Five out of 5 muscle strength in the arms and legs. Normal speech. PSYCHIATRIC: Appropriate mood and affect; insight and judgment normal. Results Labs on day of discharge: Preliminary micro results at discharge 08/29/18 18:50 Aerobic Blood Culture - Preliminary Blood - Peripheral No growth in 2 days Anaerobic Blood Culture - Preliminary No growth in 2 days 08/29/18 18:57 Aerobic Blood Culture - Preliminary Blood - Peripheral No growth in 2 days Anaerobic Blood Culture - Preliminary No growth in 2 days 08/28/18 18:00 Aerobic Blood Culture - Preliminary Blood - Peripheral No growth in 3 days Anaerobic Blood Culture - Preliminary gram positive cocci 08/28/18 18:05 Aerobic Blood Culture - Preliminary Blood - Peripheral No growth in 3 days Anaerobic Blood Culture - Preliminary No growth in 3 days Impressions ITS Impressions Chest X-Ray 08/28/18 17:55 CONCLUSION: Negative for acute process Chest CTA 08/28/18 17:56 CONCLUSION: 1. Moderate interstitial changes with minimal consolidation left lobe with some air bronchograms 2. No evidence for central pulmonary emboli Discharge Plan Discharge Disposition Patient Disposition: 01 Discharge Home Discharge Condition Condition: Stable Discharge Order Discharge Orders: Discharge Order (Routine); Ordered 08/31/18 Ordered By: Zandra Hough Discharge Details Anticipated Discharge Date: 08/31/18 Physicians Team Primary Care Provider: Primary Care Masha Mccoy Attending Provider: Zandra Hough Other Providers: Isaak Johnson Rxs /Orders / Referrals /Forms Prescriptions: New azithromycin 500 mg tablet 500 mg PO DAILY Qty: 5 RF: 0 Lactobacillus acidoph-L.bulgar [Lactinex] 1 million cell tablet,chewable 1 tab PO DAILY Qty: 14 RF: 0 No Action No Known Home Medications RF: 0 Referrals: Primary Care Masha Mccoy [Primary Care Provider] - See Instructions Discharge Instructions Patient Printed Instructions: Ceftriaxone (By injection), Vancomycin (By injection), Azithromycin (By injection), MRSA (Methicillin-Resistant Staphylococcus Aureus) (DC) Status ED Status: Left Department
--- NOTE | 2018-08-31 14:15 | P.PNID ---
Subjective Remarks: Patient is laying in bed in no acute distress. No complaints. He says he feels well. No fever. Denies chest pain. Reports that he is coughing very little. Repeat blood culture has no growth in 2 days. 38-year-old white male who was admitted to the hospital on 08/28/2018. The patient was brought to the emergency department after he passed out. He had been experiencing shortness of breath and coughing and chills 2 weeks prior. He states that he had an episode of chills on 08/20/2018. After that, he did not get any further chills but he continued to have coughing and wheezing and felt like he had a cold, but it was not going away. The patient states that he works 2 jobs and he was going from job to job. Eventually, he started feeling exhausted. He was brought to the emergency department and on evaluation, his temperature was normal and his respiratory rate was normal. His white count was slightly elevated at 11.8. CT of the chest showed minimal consolidation in the left lobe with some bronchograms and moderate interstitial changes. The patient tells me at one point he was coughing up yellow sputum. Allergies/Adverse Reactions: Allergies No Known Allergies Allergy (Verified 08/28/18 18:22) Objective Vital Signs 08/30/18 16:00 08/30/18 17:00 08/30/18 20:00 Temperature 97.9 F 98.9 F Pulse Rate 80 69 85 Respiratory Rate 16 16 Blood Pressure 146/80 H 148/96 H Pulse Oximetry 98 95 08/30/18 21:00 08/31/18 00:00 08/31/18 01:00 Temperature 97.9 F Pulse Rate 70 86 68 Respiratory Rate 18 Blood Pressure 162/95 H Pulse Oximetry 94 L 08/31/18 04:00 08/31/18 05:00 08/31/18 08:00 Temperature 97.9 F Pulse Rate 65 55 L 61 Respiratory Rate 18 18 Blood Pressure 131/88 139/77 Pulse Oximetry 97 97 08/31/18 09:00 08/31/18 12:00 08/31/18 13:00 Temperature 98.2 F Pulse Rate 51 L 77 82 Respiratory Rate 16 Blood Pressure 158/91 H Pulse Oximetry 97 Intake & Output 08/30/18 08/31/18 08/31/18 18:59 06:59 18:59 Intake Total 1600 / 1600 1240 / 1240 1100 / 1100 Output Total 500 / 500 Balance 1100 / 1100 1240 / 1240 1100 / 1100 Weight 86 kg Intake: IV 1000 / 1000 1000 / 1000 1100 / 1100 NS Inj 1,000 ML @ 100 mls/hr IV 1000 / 1000 1000 / 1000 1000 / 1000 .CONT .Q10H [facility] Rx#:[id number] Rocephin Inj 1,000 MG In NS Inj 100 / 100 100 ML @ 200 mls/hr IV.SIG Q24H [facility] Rx#:[id number] Oral 600 / 600 240 / 240 Output: Urine 500 / 500 Other: # Voids 3 # Bowel Movements 1 08/29/18 18:50 Blood - Peripheral Aerobic Blood Culture - Preliminary No growth in 2 days 08/29/18 18:50 Blood - Peripheral Anaerobic Blood Culture - Preliminary No growth in 2 days 08/29/18 18:57 Blood - Peripheral Aerobic Blood Culture - Preliminary No growth in 2 days 08/29/18 18:57 Blood - Peripheral Anaerobic Blood Culture - Preliminary No growth in 2 days 08/28/18 18:00 Blood - Peripheral Aerobic Blood Culture - Preliminary No growth in 3 days 08/28/18 18:00 Blood - Peripheral Anaerobic Blood Culture - Preliminary gram positive cocci 08/28/18 18:05 Blood - Peripheral Aerobic Blood Culture - Preliminary No growth in 3 days 08/28/18 18:05 Blood - Peripheral Anaerobic Blood Culture - Preliminary No growth in 3 days Imaging: ITS Impressions Chest X-Ray 08/28/18 17:55 CONCLUSION: Negative for acute process Chest CTA 08/28/18 17:56 CONCLUSION: 1. Moderate interstitial changes with minimal consolidation left lobe with some air bronchograms 2. No evidence for central pulmonary emboli Physical Exam: PHYSICAL EXAMINATION: GENERAL: No acute distress. HEENT: Head is atraumatic. Extraocular movements grossly intact. Pupils reactive to light. No icterus. Oropharynx moist mucosa without lesions. NECK: Supple. No adenopathy. No swelling. LUNGS: Decreased breath sounds. HEART: Regular S1 and S2 without any murmurs, rubs, or gallops. ABDOMEN: Bowel sounds present. Soft, no tenderness. EXTREMITIES: No clubbing, cyanosis, or edema. SKIN: No rash. NEUROLOGIC: No gross focal finding. PSYCHIATRIC: Calm and cooperative. Assessment and Plan - Plan IMPRESSION: 1. Pneumonia in a patient with symptoms of cough, sputum production, left anterior chest pain, and prior episode of chills and malaise. Sputum culture not available and is currently not producing sputum. 2. Bacteremia: One blood culture positive out of 4 with gram-positive cocci. Contamination. 3. Mildly elevated white blood cell count. Stable. RECOMMENDATIONS: Okay to discharge from my standpoint. Give 5 more days of p.o. azithromycin. Dr. Hough notified.
[2018-08-31] MEDS ORDERED: Pharmacy Ordered Lab Info OTHER ONE (14:45)
[2018-08-31 16:04] VITALS: BP 140/70; PULSE 70; TEMP 98
== END 2018-08-31 16:52 | disposition home or self-care (01) | DRG 195 ==
LOC: NEPD 17:31 → NEDA 20:30 → HCIN 21:45
PROVIDERS: ADMIT Hospitalist; ATTEND Hospitalist
DX: Z87.891 Personal history of nicotine dependence; R55 Syncope and collapse; J18.9 Pneumonia, unspecified organism; R09.02 Hypoxemia
CPT/HCPCS: 36600; 71010; 71045; 71275; 80053; 80307; 82550; 82552; 82805; 83520; 83605; 83735; 83880; 84484; 85025; 85610; 85730; 87040; 87205; 90761; 90774; 90775; 90784; 93005; 93306; 94150; 94664; 95819; 96361; 96374; 96375; 99285; C8952; J0456; J0696; J2405; J2920; J2930; J3370; J7030; J7040; J7050; Q9967